=== PATIENT | male | born 1985 | race Caucasian/White ===

== ENCOUNTER 2018-02-05 08:59 | Emergency (ER) | payer OTHER ==
[~2018-02-05] VITALS: Ht 175.3 cm; Wt 94.8 kg
[~2018-02-05 08:59] MED LIST: ACET325; AMOX1XR PO; AZIT250 PO; Bactrim Ds Tab1 EACH PO; CEPH500 PO; CIME300; HYDACE5 PO; IBUP800 PO; NAPR500 PO; NYQUIL LIQUID; OXYACE5T PO; RANI150; RXNAPNA550 PO; RXOXYACE PO; Ultram50 MG PO
[2018-02-05] MEDS ORDERED: Amoxicillin875 MG PO (10:34)
[2018-02-05] MEDS ORDERED: Percocet 7.5-31 EACH PO (10:34)
[2018-02-05] MEDS ORDERED: NAPR550 PO (10:34)
== END 2018-02-05 10:43 | disposition home or self-care (01) ==
LOC: ER 08:59
DX: S02.32XA Fracture of orbital floor, left side, initial encounter for closed fracture (principal); Y04.8XXA Assault by other bodily force, initial encounter; F41.9 Anxiety disorder, unspecified; Z87.891 Personal history of nicotine dependence
CPT/HCPCS: 70450; 70480; 99284; J1885

== ENCOUNTER 2022-04-30 14:26 | Emergency (ER) | payer OTHER ==
[~2022-04-30] VITALS: Ht 177.8 cm; Wt 81.7 kg
[~2022-04-30 14:26] MED LIST changes: +Amoxicillin875 MG PO; +NAPR550 PO; +Percocet 7.5-31 EACH PO
== END 2022-04-30 16:51 | disposition left against medical advice (07) ==
LOC: ER 14:26
DX: M25.532 Pain in left wrist (principal); M79.672 Pain in left foot; M79.671 Pain in right foot; Z53.21 Procedure and treatment not carried out due to patient leaving prior to being seen by health care provider
CPT/HCPCS: 99281

== ENCOUNTER 2022-05-04 10:11 | Emergency (ER) | payer OTHER ==
[~2022-05-04] VITALS: Ht 175.3 cm; Wt 81.7 kg
[2022-05-04 11:47] LABS: BASOPHILS ABSOLUTE AUTO 0.14 K/mm3 (0.00-0.23); BASOPHILS PERCENT AUTO 1 % (0-2); EOSINOPHILS ABSOLUTE AUTO 0.24 K/mm3 (0.00-0.68); EOSINOPHILS PERCENT AUTO 2 % (0-6); Hematocrit 40.3 % (37.0-53.0); Hemoglobin 13.6 g/dL (13.5-17.5); IMMATURE GRAN ABSOLUTE AUTO 0.58 K/mm3 (0.00-0.10); IMMATURE GRAN PERCENT AUTO 4 % (0-1); LYMPHOCYTES ABSOLUTE AUTO 2.28 K/mm3 (0.84-5.20); LYMPHOCYTES PERCENT AUTO 16 % (21-46); MONOCYTES ABSOLUTE AUTO 1.05 K/mm3 (0.16-1.47); MONOCYTES PERCENT AUTO 8 % (4-13); Mean Corpuscular HGB 30.2 pg (26.0-34.0); Mean Corpuscular HGB Conc 33.7 g/dL (31.5-36.5); Mean Corpuscular Volume 89 fL (80-100); Mean Platelet Volume 10.3 fL (9.1-12.4); NEUTROPHILS ABSOLUTE AUTO 9.61 K/mm3 (1.96-9.15); NEUTROPHILS PERCENT AUTO 69 % (41-73); Platelet Count 412 K/mm3 (150-400); RDW Coefficient Variation 12.7 % (11.7-14.2); RDW Standard Deviation 41.9 fL (35.1-46.3); Red Blood Cell Count 4.51 M/mm3 (4.30-5.90)
[2022-05-04 12:08] LABS: Albumin, Blood 3.1 g/dL (3.4-5.0); Albumin/Globulin Ratio 0.6 (0.8-1.8); Bilirubin, Total 0.4 mg/dL (0.1-1.0); Bun/Creatinine Ratio 16.1 (12.0-20.0); Calcium, Blood 9.5 mg/dL (8.5-10.1); Creatinine, Blood 0.75 mg/dL (0.60-1.20); Globulin, Blood 4.8 g/dL (2.2-4.0); Total Protein, Blood 7.9 g/dL (6.4-8.2)
== END 2022-05-04 16:05 | disposition home or self-care (01) ==
LOC: ER 10:11
PROVIDERS: Student in an Organized Health Care Education/Training Program
DX: L03.314 Cellulitis of groin (principal); F17.210 Nicotine dependence, cigarettes, uncomplicated; F15.10 Other stimulant abuse, uncomplicated; Z59.00 Homelessness unspecified
CPT/HCPCS: 36415; 74177; 80053; 83605; 85025; A9270; J0690; Q9967

== ENCOUNTER 2023-10-17 23:56 | Emergency (ER) | payer OTHER ==
[~2023-10-17] VITALS: Ht 172.7 cm; Wt 97.1 kg
[~2023-10-17 23:56] MED LIST changes: +NARCAN4 M1
[2023-10-18 01:00] VITALS: BP 136/80
== END 2023-10-18 01:01 | disposition home or self-care (01) ==
LOC: ER 23:56
DX: T69.021A Immersion foot, right foot, initial encounter (principal); T69.022A Immersion foot, left foot, initial encounter; F41.9 Anxiety disorder, unspecified; F17.210 Nicotine dependence, cigarettes, uncomplicated; X31.XXXA Exposure to excessive natural cold, initial encounter; Z59.00 Homelessness unspecified
CPT/HCPCS: 99283

== ENCOUNTER 2023-12-31 21:34 | Emergency (ER) | payer OTHER ==
[~2023-12-31] VITALS: Ht 175.3 cm; Wt 81.7 kg
[2023-12-31 21:41] VITALS: BP 156/107
[2023-12-31] MEDS ORDERED: Ibuprofen 600 MG Tab PO ONE (22:25)
[2023-12-31] MEDS ORDERED: Doxycycline Hyclate 100 MG TAB PO ONE (22:25)
[2023-12-31] MEDS ORDERED: DOXY100 PO (22:27)
[2024-01-05] MEDS ORDERED: CEPH500 PO (23:43)
[2024-01-05] MEDS ORDERED: Bactrim Ds Tab1 EACH PO (23:43)
== END 2023-12-31 22:45 | disposition home or self-care (01) ==
LOC: ER 21:34
DX: S71.102A Unspecified open wound, left thigh, initial encounter (principal); S71.101A Unspecified open wound, right thigh, initial encounter; L03.011 Cellulitis of right finger; X58.XXXA Exposure to other specified factors, initial encounter; F17.210 Nicotine dependence, cigarettes, uncomplicated
CPT/HCPCS: 99283; A9270

== ENCOUNTER 2024-01-28 21:11 | Emergency (ER) | payer OTHER ==
[~2024-01-28] VITALS: Ht 175.3 cm; Wt 99.8 kg
[~2024-01-28 21:11] MED LIST changes: +DOXY100 PO
[2024-01-28 21:14] VITALS: BP 161/98
[2024-01-28] MEDS ORDERED: Bactrim Ds Tab1 EACH PO (21:55)
== END 2024-01-28 22:07 | disposition home or self-care (01) ==
LOC: ER 21:11
DX: L08.9 Local infection of the skin and subcutaneous tissue, unspecified (principal); S61.001D Unspecified open wound of right thumb without damage to nail, subsequent encounter; F41.9 Anxiety disorder, unspecified; F17.210 Nicotine dependence, cigarettes, uncomplicated; Z59.00 Homelessness unspecified; X58.XXXD Exposure to other specified factors, subsequent encounter
CPT/HCPCS: 99282

== ENCOUNTER 2024-05-26 12:30 | Emergency (ER) | payer OTHER ==
[~2024-05-26] VITALS: Ht 175.3 cm; Wt 77.1 kg
[2024-05-26 12:37] VITALS: BP 140/93
[2024-05-26] MEDS ORDERED: CEPH500 PO (12:40)
[2024-05-26] MEDS ORDERED: Bactrim Ds Tab1 EACH PO (12:40)
== END 2024-05-26 12:42 | disposition home or self-care (01) ==
LOC: ER 12:30
DX: L08.9 Local infection of the skin and subcutaneous tissue, unspecified (principal); F17.210 Nicotine dependence, cigarettes, uncomplicated
CPT/HCPCS: 99282